=== PATIENT | male | born 1950 | race Caucasian/White ===

== ENCOUNTER 2018-10-03 12:10 | Inpatient (IN) | payer MEDICARE, OTHER ==
[~2018-10-03] VITALS: Ht 172.7 cm; Wt 117.9 kg
[~2018-10-03 12:10] MED LIST: ASPI-515 PO; CHOL-29 PO; FERR-46 PO; GLYB-137 PO; LEVE500T53 PO; METO50TA82 PO; PIOG1TAB16 PO; SIMV20TA3 PO
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
[2018-10-03] MEDS ORDERED: SODIUM CHLORIDE 0.9% 1,000ML IVBOLUS ONE (13:00)
--- NOTE | 2018-10-03 13:00 | NUR ---
UA COLLECTED AND SENT TO LAB. PT SOILED CLOTHING, CLEANED UP AND BAGS PANTS AND UNDERWEAR, BAG GIVEN TO . SECOND WITNESSED EPISODE OF TREMORS WHILE CHANGING PT. AWAITING TEST RESULTS AND RECHECK
[2018-10-03 13:14] LABS: PH, VENOUS 7.464 pH (7.320-7.420)
[2018-10-03 13:16] LABS: FIO2 ROOM AIR %
[2018-10-03 13:18] LABS: BASOPHILS # (AUTO) 0.05 x10^3/uL (0-0.1); BASOPHILS % (AUTO) 1 % (0-1); EOSINOPHILS # (AUTO) 0.16 x10^3/uL (0-0.4); EOSINOPHILS % (AUTO) 3 % (1-7); LYMPHOCYTES % (AUTO) 25 % (22-44); MD NO; MEAN CORPUSCULAR HEMOGLOBIN 29.5 pg (27.5-34.5); MEAN CORPUSCULAR VOLUME 86.5 fL (81-97); MEAN PLATELET VOLUME 8.8 fL (7.4-10.4); MONOCYTES # (AUTO) 0.41 x10^3/uL (0.2-0.8); MONOCYTES % (AUTO) 8 % (2-9); NEUTROPHILS % (AUTO) 63 % (42-75); PLATELET COUNT 200 x10^3/uL (130-400); RED BLOOD COUNT 4.36 x10^6/uL (4.38-5.82); RED CELL DISTRIBUTION WIDTH 14.5 % (9.4-14.8)
[2018-10-03 13:24] LABS: ACETONE, SERUM Trace (10mg/dL) mg/dL (Negative)
[2018-10-03 13:28] LABS: ALANINE AMINOTRANSFERASE 187 U/L (12-78); ALBUMIN 3.1 g/dL (3.4-5.0); ANION GAP 8 mmol/L (5-15); CHLORIDE 102 mmol/L (98-107); CREATININE 1.66 mg/dL (0.7-1.3)
[2018-10-03 13:32] LABS: ALKALINE PHOSPHATASE 101 U/L (45-117); BILIRUBIN,TOTAL 0.9 mg/dL (0.2-1.0); TOTAL PROTEIN 8.4 g/dL (6.4-8.2)
[2018-10-03 13:39] LABS: MICROSCOPIC AUTO
[2018-10-03 13:43] LABS: CULTURE INDICATED? NO
--- NOTE | 2018-10-03 13:51 | NUR ---
ALL RESULTS BACK AT THIS TIME, CHART UP FOR RECHECK
--- NOTE | 2018-10-03 14:06 | NUR ---
MD TO BEDSIDE TO RECHECK PT, ADDITIONAL ORDERS RECEIVED
[2018-10-03] MEDS ORDERED: DEXAMETHASONE 4 MG/ML, 5ML ONE (14:18)
[2018-10-03] MEDS ORDERED: LORazepam 2 MG/ML, 1ML ONE (14:18)
--- NOTE | 2018-10-03 14:20 | NUR ---
PT TAKEN TO CT
[2018-10-03] MEDS ORDERED: DEXAMETHASONE 4 MG/ML, 1ML IVPush ONE (14:30)
[2018-10-03] MEDS ORDERED: LORazepam 2 MG/ML, 1ML IVPush ONE (14:30)
--- NOTE | 2018-10-03 14:43 | NUR ---
PT BACK FROM CT. MEDICATED PER SEP. AWAITING CT RESULTS AT [facility] TIME
--- NOTE | 2018-10-03 14:49 | NUR ---
ALL RESULTS BACK AT THIS TIME, CHART UP FOR RECHECK
[2018-10-03] MEDS ORDERED: LEVETIRACETAM 1,000 MG in SODIUM CHLORIDE 0.9% 100 ML IV ONE (15:00)
--- NOTE | 2018-10-03 15:55 | NUR ---
FATUMA RN: ADMITTING MD DUTTA AT BEDSIDE FOR EVAL. PT AO X 4. SKIN PWD. RESP EVEN AND EQAUL. PT AWARE WE ARE WAITING FOR ADMISSION. CALL LIGHT WITHIN REACH.
[2018-10-03] MEDS ORDERED: ONDANSETRON 2MG/ML, 2ML IVPush PRN (16:30)
[2018-10-03] MEDS ORDERED: ACETAMINOPHEN 325 MG TABLET PO PRN (16:30)
[2018-10-03] MEDS ORDERED: ONDANSETRON ODT 4 MG PO PRN (16:30)
[2018-10-03] MEDS ORDERED: FERROUS SULFATE 325 MG TABLET PO SCH (16:30)
[2018-10-03 16:52] LABS: HEMOGLOBIN A1C 12.5 % (4.2-6.3)
--- NOTE | 2018-10-03 17:16 | NUR ---
REPORT GIVEN TO TIMO RN, PT READY FOR TRANSPORT TO FLOOR
[2018-10-03 18:00] VITALS: BP 160/75
[2018-10-03] MEDS ORDERED: NS + 20MEQ KCL 1,000 ML IV SCH (18:30)
[2018-10-03 19:38] VITALS: BP 159/76
[2018-10-03] MEDS: CARVEDILOL 6.25 MG TABLET PO SCH (20:45)
[2018-10-03] MEDS: LEVETIRACETAM 500 MG TABLET PO SCH (20:45)
[2018-10-03] MEDS: ISOSORBIDE DINITRATE 10 MG TABLET PO SCH (20:46)
[2018-10-03] MEDS: SIMVASTATIN 20 MG TABLET PO SCH (20:46)
[2018-10-03] MEDS: HEPARIN 5,000 UNITS/ML, 1ML SQ SCH (20:47)
[2018-10-03] MEDS ORDERED: LEVETIRACETAM 500 MG TABLET PO SCH (21:00)
[2018-10-03] MEDS: INSULIN LISPRO 100 UNITS/ML, PEN SQ-INSULIN SCH (21:00)
[2018-10-03] MEDS ORDERED: INSULIN GLARGINE 100 UNITS/ML, PEN SQ-INSULIN SCH (21:00)
[2018-10-03] MEDS: SODIUM CHLORIDE 0.9% 1,000 ML IV SCH (22:02)
[2018-10-03] MEDS ORDERED: INSULIN LISPRO 100 UNITS/ML, PEN SQ-INSULIN ONE (22:30)
[2018-10-04 01:44] VITALS: BP 139/76
[2018-10-04 05:15] LABS: BASOPHILS # (AUTO) 0.01 x10^3/uL (0-0.1); BASOPHILS % (AUTO) 0 % (0-1); EOSINOPHILS % (AUTO) 0 % (1-7); LYMPHOCYTES # (AUTO) 0.97 x10^3/uL (1-3.4); LYMPHOCYTES % (AUTO) 16 % (22-44); MD NO; MEAN CORPUSCULAR HEMOGLOBIN 29.5 pg (27.5-34.5); MEAN CORPUSCULAR HGB CONC 33.9 g/dL (33.2-36.2); MEAN PLATELET VOLUME 9.1 fL (7.4-10.4); MONOCYTES # (AUTO) 0.19 x10^3/uL (0.2-0.8); MONOCYTES % (AUTO) 3 % (2-9); NEUTROPHILS # (AUTO) 5.07 x10^3/uL (1.8-6.8); NEUTROPHILS % (AUTO) 81 % (42-75); PLATELET COUNT 167 x10^3/uL (130-400); RED BLOOD COUNT 3.83 x10^6/uL (4.38-5.82); RED CELL DISTRIBUTION WIDTH 14.5 % (9.4-14.8)
[2018-10-04] MEDS: HEPARIN 5,000 UNITS/ML, 1ML SQ SCH ×3 (05:21→21:13)
[2018-10-04 05:31] LABS: ALBUMIN 2.8 g/dL (3.4-5.0); ANION GAP 7 mmol/L (5-15); BILIRUBIN, DIRECT 0.3 mg/dL (0.1-0.2); CALCIUM 7.9 mg/dL (8.5-10.1); CHLORIDE 104 mmol/L (98-107)
[2018-10-04 05:38] LABS: ALANINE AMINOTRANSFERASE 138 U/L (12-78); ALKALINE PHOSPHATASE 81 U/L (45-117); BILIRUBIN,INDIRECT 0.3 mg/dL (0.0-2.0); BILIRUBIN,TOTAL 0.6 mg/dL (0.2-1.0); CREATININE 1.64 mg/dL (0.7-1.3); TOTAL PROTEIN 7.4 g/dL (6.4-8.2)
[2018-10-04 07:25] VITALS: BP 146/62
[2018-10-04] MEDS: CHOLECALCIFEROL 1,000 UNIT TABLET PO SCH (09:18)
[2018-10-04] MEDS: LEVETIRACETAM 500 MG TABLET PO SCH ×2 (09:18→21:12)
[2018-10-04] MEDS: ASPIRIN 81 MG TABLET EC PO SCH (09:19)
[2018-10-04] MEDS: CARVEDILOL 6.25 MG TABLET PO SCH ×2 (09:19→18:16)
[2018-10-04] MEDS: ISOSORBIDE DINITRATE 10 MG TABLET PO SCH ×3 (09:19→21:11)
[2018-10-04] MEDS: INSULIN LISPRO 100 UNITS/ML, PEN SQ-INSULIN SCH ×4 (09:20→21:15)
[2018-10-04] MEDS ORDERED: LORazepam 2 MG/ML, 1ML ONE (11:25)
[2018-10-04] MEDS ORDERED: LORazepam 2 MG/ML, 1ML IVPush ONE (11:30)
[2018-10-04] MEDS: SODIUM CHLORIDE 0.9% 1,000 ML IV SCH (11:34)
[2018-10-04] MEDS ORDERED: GADOBUTROL 15 MMOL/15 ML VIAL ONE (12:07)
[2018-10-04 13:30] VITALS: BP 124/67
[2018-10-04 18:55] VITALS: BP 128/60
[2018-10-04] MEDS ORDERED: INSULIN GLARGINE 100 UNITS/ML, PEN SQ-INSULIN SCH (21:00)
[2018-10-04] MEDS: SIMVASTATIN 20 MG TABLET PO SCH (21:12)
[2018-10-05 01:41] VITALS: BP 151/73
[2018-10-05] MEDS: CARVEDILOL 6.25 MG TABLET PO SCH (05:19)
[2018-10-05] MEDS: HEPARIN 5,000 UNITS/ML, 1ML SQ SCH ×2 (05:20→13:00)
[2018-10-05 07:39] VITALS: BP 136/68
[2018-10-05] MEDS: CHOLECALCIFEROL 1,000 UNIT TABLET PO SCH (08:45)
[2018-10-05] MEDS: ASPIRIN 81 MG TABLET EC PO SCH (08:45)
[2018-10-05] MEDS: ISOSORBIDE DINITRATE 10 MG TABLET PO SCH (08:45)
[2018-10-05] MEDS: LEVETIRACETAM 500 MG TABLET PO SCH (08:46)
[2018-10-05] MEDS: INSULIN LISPRO 100 UNITS/ML, PEN SQ-INSULIN SCH ×2 (08:48→12:15)
[2018-10-05] MEDS: SODIUM CHLORIDE 0.9% 1,000 ML IV SCH (08:52)
[2018-10-05] MEDS ORDERED: CARV6.2512 PO (09:45)
[2018-10-05] MEDS ORDERED: INSU100I11 SQ-INSULIN (09:45)
[2018-10-05] MEDS ORDERED: LEVE500T53 PO (09:45)
[2018-10-05] MEDS ORDERED: INSU100I13 SQ-INSULIN (09:45)
[2018-10-05] MEDS ORDERED: ISOS10TA2 PO (09:45)
[2018-10-05] MEDS ORDERED: HYDR-3342 PO (09:45)
[2018-10-05] MEDS ORDERED: FERR-51 PO (09:45)
== END 2018-10-05 14:15 | disposition home or self-care (01) | DRG 100 ==
LOC: ED 15:10 → EDIP 15:16 → ED 16:53 → 4WST 17:56 → DCLOUNGE 10-05 13:50
PROVIDERS: ADMIT Hospitalist; ATTEND Hospitalist
DX: G40.209 Localization-related (focal) (partial) symptomatic epilepsy and epileptic syndromes with complex partial seizures, not intractable, without status epilepticus (principal); Q28.2 Arteriovenous malformation of cerebral vessels; E87.1 Hypo-osmolality and hyponatremia; N17.9 Acute kidney failure, unspecified; E11.65 Type 2 diabetes mellitus with hyperglycemia; E66.9 Obesity, unspecified; Z68.39 Body mass index [BMI] 39.0-39.9, adult; E78.5 Hyperlipidemia, unspecified; S40.021A Contusion of right upper arm, initial encounter; W18.39XA Other fall on same level, initial encounter; E87.5 Hyperkalemia; I25.10 Atherosclerotic heart disease of native coronary artery without angina pectoris; I10 Essential (primary) hypertension; G47.00 Insomnia, unspecified; I48.91 Unspecified atrial fibrillation; K74.60 Unspecified cirrhosis of liver; Z79.899 Other long term (current) drug therapy; Z86.73 Personal history of transient ischemic attack (TIA), and cerebral infarction without residual deficits; Y93.89 Activity, other specified; Y92.89 Other specified places as the place of occurrence of the external cause
CPT/HCPCS: 36415; 70450; 70544; 70553; 76705; 80048; 80053; 80074; 80076; 81001; 82010; 82803; 82947; 82962; 83036; 83880; 85025; 93005; 95819; 96361; 96365; 96375; A9585; G0378; J1100; J1644; J1953; J1815; J2060; J7030

== ENCOUNTER 2020-08-05 20:18 | Emergency (ER) | payer MEDICARE ==
[~2020-08-05] VITALS: Ht 172.7 cm; Wt 110.0 kg
[~2020-08-05 20:18] MED LIST changes: +CARV6.2512 PO; +FERR-51 PO; -GLYB-137 PO; +GLYB1TAB18 PO; +HYDR-3342 PO; +INSU100I11 SQ-INSULIN; +INSU100I13 SQ-INSULIN; +ISOS10TA2 PO; +SIMV20TA19 PO; -SIMV20TA3 PO
--- NOTE | 2020-08-05 20:33 | NUR ---
PT BIB [facility] WITH C/O WEAKNESS AND MUSCLE SPASMS, TO THIS TIME THIS RN WITNESED PT WITH INVOLENTARY SHAKING OF LEFT ARM AND TWITCHING OF RIGHT SIDE OF FACE X JOE 2 MIN, PT ABLE TO HAVE CONVERSATION DURING THIS TIME, SJ JOSUE WITNESSED THIS X 1
[2020-08-05] MEDS ORDERED: LORazepam 2 MG/ML, 1ML ONE (20:35)
[2020-08-05] MEDS ORDERED: LORazepam 2 MG/ML, 1ML IVPush ONE (21:00)
[2020-08-05 21:30] LABS: BASOPHILS % (AUTO) 1 % (0-1); EOSINOPHILS % (AUTO) 3 % (1-7); LYMPHOCYTES % (AUTO) 24 % (22-44); MEAN CORPUSCULAR HEMOGLOBIN 30.8 pg (27.5-34.5); MEAN CORPUSCULAR HGB CONC 34.3 g/dL (33.2-36.2); MEAN PLATELET VOLUME 8.6 fL (7.4-10.4); MONOCYTES % (AUTO) 9 % (2-9); NEUTROPHILS % (AUTO) 63 % (42-75); PLATELET COUNT 156 x10^3/uL (130-400); RED BLOOD COUNT 3.97 x10^6/uL (4.38-5.82); RED CELL DISTRIBUTION WIDTH 15.2 % (9.4-14.8)
[2020-08-05 21:32] LABS: MD NO
[2020-08-05 21:38] LABS: ALANINE AMINOTRANSFERASE 77 U/L (12-78); ANION GAP 6 mmol/L (5-15); CALCIUM 8.7 mg/dL (8.5-10.1); CHLORIDE 113 mmol/L (98-107); CREATININE 1.52 mg/dL (0.7-1.3)
--- NOTE | 2020-08-05 21:38 | NUR ---
above note stated left arm, should be right arm
[2020-08-05 21:42] LABS: ALKALINE PHOSPHATASE 66 U/L (45-117); BILIRUBIN,TOTAL 0.9 mg/dL (0.2-1.0); TOTAL PROTEIN 8.3 g/dL (6.4-8.2); TROPONIN I < 0.015 ng/mL (0.000-0.045)
[2020-08-05 22:28] LABS: INTERNATIONAL NORMALIZED RATIO 1.1 (0.93-1.1); PROTHROMBIN TIME 11.7 Seconds (9.6-11.5)
--- NOTE | 2020-08-05 23:00 | NUR ---
BALE PILER GAVE A RN TO RN TO [facility]. [facility] TOOK PT INFO VIA PHONE AND SAID SHE WOULD CALL BACK WITH DR LANNY ROSENBERG
[2020-08-05] MEDS ORDERED: LEVETIRACETAM 500 MG in SODIUM CHLORIDE 0.9% 100 ML IV ONE (23:30)
--- NOTE | 2020-08-05 23:42 | NUR ---
PT GIVEN A ADDITIONAL IV, PT RESTING IN BED WITH PT HEAD AT 30 DEG. PT A/O X4 WITH UNLABORED EQUAL BREATHING. PT MEDICATED PER SEP. PT AWARE AND AGREED TO TRANSFER TO [facility]. PROVIDER TALKED WITH PT WELL PT ABOUT PT CONDITION AND THE PROS AND CONS.
--- NOTE | 2020-08-06 00:30 | NUR ---
pt care transfered to care flight
[2020-08-06 00:49] VITALS: BP 118/60
== END 2020-08-06 01:57 | disposition short-term general hospital (02) ==
LOC: ED 21:09
DX: S09.93XA Unspecified injury of face, initial encounter (principal); I61.3 Nontraumatic intracerebral hemorrhage in brain stem; Z20.822 Contact with and (suspected) exposure to COVID-19; R42 Dizziness and giddiness; I10 Essential (primary) hypertension; E11.9 Type 2 diabetes mellitus without complications; I25.10 Atherosclerotic heart disease of native coronary artery without angina pectoris; R94.31 Abnormal electrocardiogram [ECG] [EKG]; E78.00 Pure hypercholesterolemia, unspecified; Z86.73 Personal history of transient ischemic attack (TIA), and cerebral infarction without residual deficits; W19.XXXA Unspecified fall, initial encounter; Y93.89 Activity, other specified; Y92.89 Other specified places as the place of occurrence of the external cause; Y99.8 Other external cause status
CPT/HCPCS: 36415; 70450; 80053; 84484; 85025; 85610; 85730; 87635; 93005; 96365; 96368; 96375; 99291; J1953; J2060; J7050